=== PATIENT | male | born 1955 | race Caucasian/White ===

== ENCOUNTER 2021-01-01 16:16 | Emergency (ER) | payer MEDICAID, SELFPAY ==
[2021-01-01 16:17] VITALS: BP 137/97; PULSE 91; RESP 16; TEMP 36.4; O2SAT 97; BMI 31.2
--- NOTE | 2021-01-01 17:50 | EKG12_ITS ---
Test Reason : SOB Blood Pressure : / mmHG Vent. Rate : 084 BPM Atrial Rate : 084 BPM P-R Int : 166 ms QRS Dur : 092 ms QT Int : 364 ms P-R-T Axes : 064 041 045 degrees QTc Int : 430 ms Sinus rhythm with Premature atrial complexes Otherwise normal ECG Confirmed by VIELKA LUO, VIDYA ([id number]), business editor ARIAN DOSS ([id number]) on 01/03/2021 10:39:34 AM Referred By: SYLVIA Confirmed By:VIDYA VORA MD
--- NOTE | 2021-01-01 17:51 | EX.ED.DYSGE1 ---
HPI History of Present Illness Chief Complaint: Weakness Detail of Chief Complaint: Generalized weakness and not feeling well Informant: patient Narrative Narrative: Patient presents to the emergency department with complaint of not feeling well and requesting a second opinion. Patient states that he was admitted to [facility] for the last 2 days and he signed out AGAINST MEDICAL ADVICE this morning. Patient was told he had COVID-19. Patient states that he has had symptoms for about 8 days. He complains of a cough. He denies any real shortness of breath. He denies chest pain. Patient lives in [place] however his primary care physician is here locally in [place], Dr. Perdue. Patient has history of hypertension and history of CHF. Patient has history of chronic back pain. [facility] Medical History (Updated 01/01/21 @ 21:[address] Priscilla Arnold DO) CHF (congestive heart failure) Hypertension Home Medications aspirin 81 mg PO DAILY 01/01/21 [History Last Taken Unknown] doxycycline monohydrate 100 mg PO BID #14 capsule 01/01/21 [Rx Last Taken Unknown] Allergy/AdvReac Type Severity Reaction Status Date / Time Penicillins Allergy Hives Verified 01/01/21 16:25 Social History Smoking Status: Never smoker ROS ROS ED ROS Narrative Weakness Constitutional Constitutional ED: Reports systems reviewed and no addt'l complaints, except as documented; Denies body ache(s), change in weight or chills Eyes Eyes: Denies acute decrease in peripheral vision, change in vision, double vision or loss of vision ENT ENT ED: Reports none; Denies ear pain, lip swelling, loss taste/smell, neck pain, otalgia or sore throat Cardiovascular Cardiovascular: Reports none; Denies abdominal pain, chest pain with activity, leg edema, lightheadedness, palpitations, rapid heart rate or syncope Respiratory/Chest Respiratory/Chest: Reports none and cough; Denies change in mental status, dry cough, dyspnea, hemoptysis, shortness of breath at rest or shortness of breath with exertion Gastrointestinal Gastrointestinal: Reports none; Denies abdominal pain, change in stool character, diarrhea, hematemesis, hematochezia, melena, rectal bleeding or vomiting Genitourinary Genitourinary ED: Reports none; Denies abdominal discomfort, anuria, dysuria, genital pain or polyuria Musculoskeletal Musculoskeletal: Reports none; Denies arthralgias, back pain, difficulty walking, extremity pain, muscle weakness or myalgias Integumentary Reports none; Denies abscess or rash Neurologic Neurologic: Reports none, headache(s) and weakness; Denies abnormal gait, confusion, focal weakness, frequent falls, loss of vision, numbness, paresthesias, radicular pain or vertigo Psychiatric Psychiatric: Reports systems reviewed and no addt'l complaints, except as documented and none; Denies behavioral changes, confusion, difficulty concentrating, hallucinations, suicidal ideation, tactile hallucinations or visual hallucinations Endocrine Endocrinology: Denies none, cold intolerance, excessive sweating, fatigue or heat intolerance Hematologic/Lymphatic Hematologic/Lymphatic: Reports none; Denies anemia, easy bleeding or easy bruising Allergic/Immunologic Allergic/Immunologic ED: Denies as per HPI, none, lip swelling, mouth swelling, throat swelling, tongue swelling or hives EXAM Physical Exam Const Vital Signs: 01/01/21 16:17 01/01/21 18:16 01/01/21 18:25 Temperature 97.6 F L Temperature Source Temporal Pulse Rate 91 80 Respiratory Rate 16 16 Respiratory Effort Normal Non-Labored Respiratory Pattern Normal Blood Pressure 137/97 H 144/92 H Blood Pressure Mean 110 109 Pulse Ox 97 100 Oxygen Delivery Method Room Air Room Air 01/01/21 19:24 01/01/21 20:00 Temperature 97.8 F 97.7 F L Temperature Source Temporal Temporal Pulse Rate 80 86 Respiratory Rate 16 15 Respiratory Effort Respiratory Pattern Blood Pressure 144/92 H 146/90 H Blood Pressure Mean 109 108 Pulse Ox 100 98 Oxygen Delivery Method Room Air Room Air Positive well nourished and well developed General Appearance ED: well developed and NAD HEENT Reports TM's clear and moist mucous membranes normocephalic and atraumatic; Negative for trauma or tenderness Tympanic Membrane ED: Yes TM's clear Eyes PERRL and EOMs intact bilaterally General Eye ED: Negative for pale conjunctiva or scleral icterus Neck no lymphadenopathy, supple and no JVD General: Negative for tenderness Chest Wall inspection of chest normal and palpation of chest normal Chest: Negative for tenderness Resp normal respiratory effort and clear to auscultation bilaterally Effort and Inspection: Negative for respiratory distress or pain with movement Auscultation: Negative for rhonchi, wheezes or diminished lung sounds Cardio regular rate, regular rhythm, S1 normal heart sound, S2 normal heart sound and no murmurs Peripheral Pulses: pulses 2+ throughout GI normal to inspection, nondistended, normoactive bowel sounds, soft to palpation, non-tender, non-distended and no masses Back/Spine no CVA tenderness and no thoracic nor lumbar tenderness Extremity normal to inspection General Extremety ED: Negative for edema General Extremity: Negative for edema Neuro oriented x3, CN's II-XII intact bilaterally, no sensory deficits noted and gait normal Sensorium / Orientation: awake, alert, oriented to person, oriented to place and oriented to time Motor Exam: strength 5/5 throughout and strength abnormal Psych mental status grossly normal Skin no rashes or lesions noted and no wounds MDM MDM MDM Narrative Medical decision making narrative: Patient's labs were reviewed and I was able to obtain visit history from [facility] where patient was admitted for several days. Patient had significant work-up there including echocardiogram and serial troponins which were unremarkable. For us patient is noted to have a slightly elevated white count of 12.5 and patient had bilateral infiltrates on x-ray. He is not hypoxic and he is not complaining of chest pain. Patient looks well. He will be discharged to home with instructions to follow-up with his primary care physician in 3 to 5 days. Patient to return if increasing shortness of breath or condition should worsen anyway. Lab Data Attestation: I reviewed the patient's lab results. Labs: Laboratory Results - last 24 hr 01/01/21 01/01/21 01/01/21 18:02 18:05 18:05 WBC 12.5 H RBC 3.98 L Hgb 10.7 L Hct 32.9 L MCV 82.7 MCH 26.9 L MCHC 32.5 RDW Std Deviation 44.7 H RDW Coeff of Shannan 14.6 Plt Count 248 MPV 11.0 Immature Gran % (Auto) 3.000 H Neut % (Auto) 83.5 H Lymph % (Auto) 6.8 L Karnes % (Auto) 6.5 Eos % (Auto) 0.0 Baso % (Auto) 0.2 Absolute Neuts (auto) 10.5 H Absolute Lymphs (auto) 0.85 Nucleated RBC % 0 Sodium 138 Potassium 4.8 Chloride 110 H Carbon Dioxide 21.0 Anion Gap 7 BUN 59 H Creatinine 2.87 H Estim Creat Clear Calc 26.85 Est GFR (MDRD) Af Amer 29 L Est GFR (MDRD) Non-Af 24 L BUN/Creatinine Ratio 20.6 H Glucose 211 H Calcium 8.5 Troponin I High Sens 18 COVID-19 ([facility]) Detected Radiography Chest X-Ray - ED: 1 View Diagnostic Testing: Radiology Impression Chest X-Ray 01/01/21 18:22 IMPRESSION: Bilateral viral, presumed Covid pneumonia. Electronically Signed: Carina Avilez MD at 19:06 EDT Tel , Service support , 1 view chest x-ray obtained interpreted by myself as bilateral infiltrates. Radiology in agreement. EKG Initial EKG: Attestation: I personally reviewed and interpreted this EKG as follows: Comments: Sinus rhythm with a ventricular rate of 84 bpm with occasional PACs. Discharge Plan Triage Chief Complaint: Weakness ED Provider: Priscilla Arnold Dx/Rx/DC Orders Clinical Impression: Weakness, COVID-19 Instructions: ED Weakness (Uncertain Cause), Caring for Someone Who Has COVID-19 Prescriptions: New doxycycline monohydrate 100 MG capsule 100 mg PO BID Qty: 14 RF: 0 No Action aspirin 81 mg Capsule 81 mg PO DAILY RF: 0 Primary Care Provider: Mariya Perdue Referrals: Mariya Perdue MD [Primary Care Provider] - 3-5 Days Disposition Disposition: Home, Self Care
[2021-01-01] MEDS: 0.9% Normal Saline 1,000 ML 150 ML IV (18:15)
[2021-01-01 18:16] VITALS: BP 144/92; PULSE 80; RESP 16; O2SAT 100
[2021-01-01 18:18] LABS: Absolute Lymphocyte Count 0.85 X10^3/uL (0.83-4.51); Absolute Neutrophil Count 10.5 X10^3/uL (2.0-7.7); Basophil# 0.02 X10^3/uL; Basophil% 0.2 % (0-1); Hematocrit 32.9 % (40-54); Hemoglobin 10.7 g/dL (13.0-16.5); Lymphocyte # 0.85 X10^3/ul (0.83-4.51); Lymphocyte % 6.8 % (19-41); Mean Corp Hgb Conc 32.5 g/dL (32-36); Mean Corpuscular Hgb 26.9 pg (27.0-32.0); Mean Corpuscular Volume 82.7 fL (80-94); Monocyte# 0.81 X10^3/uL; Monocyte% 6.5 % (0-10); NRBC Flagged by Analyzer 0 % (0-5); Neutrophil # 10.49 X10^3/uL (2.7-7.7); Neutrophil % 83.5 % (47-70); Platelet Count 248 K/mm3 (150-450); RBC Distribution Width CV 14.6 % (11.6-14.6); RBC Distribution Width SD 44.7 fl (35.1-43.9); Red Blood Count 3.98 M/mm3 (4.6-6.2); White Blood Count 12.5 K/mm3 (4.4-11.0)
--- NOTE | 2021-01-01 18:22 | RAD_ITS ---
STUDY: X-RAY CHEST REASON FOR EXAM: Male, 65 years old. cough TECHNIQUE: Frontal portable view of the chest COMPARISON: None. FINDINGS: There are irregular interstitial opacities in the right mid and lower lung zones, less in the left midlung zone. There is no pneumothorax, pulmonary edema, pleural effusions or cardiomegaly. RAD/Chest 1 View (Portable) IMPRESSION: Bilateral viral, presumed Covid pneumonia. Electronically Signed: Carina Avilez MD at 19:06 EDT Tel , Service support ,
[2021-01-01 18:34] LABS: Anion Gap 7 (5-15); BUN 59 mg/dL (7-18); BUN/Creat Ratio 20.6 RATIO (10-20); Calcium,Total 8.5 mg/dL (8.5-10.1); Chloride 110 mmol/L (98-107); Creatinine, Serum 2.87 mg/dL (0.70-1.30); EST Glomerular Filtration Rate 24 mL/min (>60); Est Glom Filt Rate - Afr Amer 29 mL/min (>60); Estimated Creatinine Clearance 26.85 ml/min; Glucose 211 mg/dL (74-106); Potassium 4.8 mmol/L (3.5-5.1); Sodium Level 138 mmol/L (136-145); Troponin-I HS 18 pg/mL (3.0-78.0)
[2021-01-01 19:24] VITALS: BP 144/92; PULSE 80; RESP 16; TEMP 36.6; O2SAT 100
[2021-01-01 20:00] VITALS: BP 146/90; PULSE 86; PULSE 87; RESP 15; TEMP 36.5; O2SAT 97; O2SAT 98
[2021-01-01 21:57] VITALS: PULSE 83; RESP 16; TEMP 37.2
== END 2021-01-01 21:58 | disposition home or self-care (01) ==
PROVIDERS: Emergency Provider Emergency Medicine; PCP Internal Medicine
DX: U07.1 COVID-19 (principal); I49.1 Atrial premature depolarization; G89.29 Other chronic pain; M54.9 Dorsalgia, unspecified; I11.0 Hypertensive heart disease with heart failure; I50.9 Heart failure, unspecified; Z79.82 Long term (current) use of aspirin
CPT/HCPCS: 71045; 80048; 84484; 85025; 87635; 93005; 96360; 96361; 99284; J7030; U0005; A4216; U0003